=== PATIENT | female | born 1945 | race Hispanic/Latino ===

== ENCOUNTER 2016-05-01 12:29 | Outpatient (CLI) | payer MEDICARE ==
--- NOTE | 2016-05-05 08:38 | PET Report ---
PET/CT:05/01/16 12:29:00 CLINICAL: Breast cancer restaging. RADIOPHARMACEUTICAL: 15.03mCi F18-FDG. COMPARISON: 12/13/15 PET/CT TECHNIQUE- Following intravenous injection of F-18 FDG and an approximately 60 minute uptake period, CT and PET images from the mid skull to the upper thighs were acquired with the patient in the fasted state. No contrast was administered. The CT protocol used for this PET CT study is designed for attenuation correction and anatomic localization of PET abnormalities. This compliance analyst CT is not desired to produce and cannot replace, [id number] diagnostic CT scans with specific imaging protocols for different body parts and indications. Plasma glucose at the time of this test: 131g/dl. The standardized uptake values (SUV) are normalized to patient body weight and indicate the highest activity concentration (SUV max) in a given disease site. FINDINGS: Brain--Physiologic FDG uptake in the visualized regions of the brain. Neck--Physiologic FDG uptake . Chest--Physiologic FDG uptake in mediastinal blood pool and myocardium. Lungs--No abnormal uptake. No pulmonary nodule or mass. Pleura/pericardium--No abnormal uptake. Thoracic nodes--No abnormal uptake. Hepatobiliary--No abnormal uptake. Liver background SUV mean, as a reference for comparing FDG studies, is 4.56 compared to 4.0 on the last exam. No liver mass. Spleen--No abnormal uptake. Pancreas--No abnormal uptake. Adrenal Glands--No abnormal uptake. Kidneys/Ureters/Bladder--No abnormal uptake. Abdominopelvic Nodes--No abnormal uptake. Bowel/Peritoneum/Mesentery--No abnormal uptake. The previously described omental FDG uptake has resolved. Pelvic organs--No abnormal uptake. Bones/Soft Tissues--No abnormal uptake. However, stable diffuse blastic skeletal metastasis. IMPRESSION-Stable skeletal metastasis. Resolution of hepatic and omental metastases.
== END 2016-05-01 12:30 | disposition home or self-care (01) ==
LOC: PET 12:29
PROVIDERS: ATTEND Internal Medicine Hematology & Oncology
DX: C50.911 Malignant neoplasm of unspecified site of right female breast (principal)
CPT/HCPCS: 78815; 82962; A9552

== ENCOUNTER 2016-09-11 09:57 | Outpatient (CLI) | payer MEDICARE ==
--- NOTE | 2016-09-12 09:03 | PET Report ---
PET SB TO MT SUBSEQUENT: HISTORY: Restaging of breast cancer. TECHNIQUE: 15.4 millicuries F-18 FDG was administered intravenously. Noncontrast CT images and PET images were obtained from the skull base to the proximal thighs. Fused images were reviewed on a workstation. The patient's blood glucose level measured 113. COMPARISON: 05/01/16. FINDINGS: BRAIN: physiologic FDG uptake in the imaged brain. NECK: physiologic FDG uptake. MEDIASTINUM: physiologic FDG uptake. LUNGS: physiologic FDG uptake. PLEURA/PERICARDIUM: physiologic FDG uptake. THORACIC LYMPH NODES: physiologic FDG uptake. HEPATOBILIARY: physiologic FDG uptake. Mean liver SUV measures 4.1. PANCREAS: physiologic FDG uptake. SPLEEN: physiologic FDG uptake. ADRENAL GLANDS: physiologic FDG uptake. KIDNEYS/RENAL COLLECTING SYSTEMS: physiologic FDG uptake. BOWEL/MESENTERY: physiologic FDG uptake. PELVIC VISCERA: physiologic FDG uptake. ABDOMINAL/PELVIC LYMPH NODES: physiologic FDG uptake. MUSCULOSKELETAL: Diffuse sclerotic skeletal metastasis appears stable. Average SUV in the bony structures measures 2.3. No new focal areas of increased activity. No pathologic fracture. Comment: Small perihepatic, perisplenic and pelvic ascites has developed since the previous exam. No obvious peritoneal or omental lesions are detected. IMPRESSION: Essentially no change since 05/01/16. Diffuse skeletal metastasis are again identified which remain hypometabolic. No new areas of abnormal radiotracer uptake are appreciated. Small ascites has developed since the previous exam.
== END 2016-09-11 09:58 | disposition home or self-care (01) ==
LOC: PET 09:57
PROVIDERS: ATTEND Internal Medicine Hematology & Oncology
DX: C79.51 Secondary malignant neoplasm of bone (principal); C50.911 Malignant neoplasm of unspecified site of right female breast; R18.8 Other ascites
CPT/HCPCS: 78815; 82962; A9552

== ENCOUNTER 2016-10-20 13:37 | Outpatient (CLI) | payer MEDICARE ==
--- NOTE | 2016-10-21 14:42 | Magnetic Resonance Report ---
MRI ABDOMEN AND PELVIS WITHOUT AND WITH CONTRAST: 10/20/16 CLINICAL: Breast cancer with pelvic pain, bone metastases and rising tumor markers. COMPARISON :09/11/16 CT PET TECHNIQUE: Axial T1 in phase and opposed phase, coronal and axial T2 and axial T2 fat sat sequences plus postcontrast T1 fat sat abdominal sequences plus coronal and axial T1 and T2 and postcontrast T1 fat sat pelvic sequences on a 1.5 Mara magnet. 20 cc of Multihance was injected intravenously for the contrast portion of the exam and consent was obtained prior to the administration of contrast. FINDINGS: Abdomen: The liver is borderline small with the right lobe measuring 14 cm in length. However, normal liver contour and signal. No liver mass. Normal gallbladder and bile ducts. Normal stomach and duodenum, pancreas and spleen. Normal adrenal glands. The kidneys are normal except for left lower pole renal cysts measuring 1.4 and 1.3 cm. The renal collecting systems and ureters are nondilated. Normal aorta and inferior vena cava. There is a moderate volume of ascites with increased amount of ascites compared to the CT PET. The small bowel and colon are normal. No intraperitoneal mass or abnormal enhancement identified. Pelvis: Normal uterus and ovaries with a dominant 1.3 cm left ovarian follicle. Pelvic ascites. No mass. Normal rectum. Sigmoid diverticulosis but no signs of diverticulitis. There is signal is diffusely heterogeneous with abnormal enhancement particularly in the pelvic bones which is consistent with known skeletal metastases. No fractures are identified. No spinal canal involvement. IMPRESSION: 1. Moderate abdominal pelvic ascites without identified etiology. 2. Borderline small liver but no other signs to suggest liver disease. 3. No intraperitoneal or retroperitoneal metastatic disease identified. 4. Skeletal metastasis but no fracture or extension into the spinal canal. 5. Sigmoid diverticulosis but no signs of diverticulitis.
== END 2016-10-20 13:38 | disposition home or self-care (01) ==
LOC: SPVIMAG 13:37
PROVIDERS: ATTEND Internal Medicine Hematology & Oncology
DX: C79.51 Secondary malignant neoplasm of bone (principal); C50.911 Malignant neoplasm of unspecified site of right female breast; N28.1 Cyst of kidney, acquired; R18.8 Other ascites; K57.30 Diverticulosis of large intestine without perforation or abscess without bleeding; I10 Essential (primary) hypertension; F32.9 Major depressive disorder, single episode, unspecified; F41.9 Anxiety disorder, unspecified; Z87.891 Personal history of nicotine dependence
CPT/HCPCS: 72197; 74183; A9577

== ENCOUNTER 2016-11-25 12:09 | Day surgery (SDC) | payer MEDICARE ==
[2016-11-25 13:27] LABS: INR 1.24 (0.87-1.13)
[2016-11-25 13:28] LABS: Partial Thromboplastin Time 27.9 Sec. (24.2-36.6)
[2016-11-25 16:14] VITALS: BP 120/56
--- NOTE | 2016-11-25 16:35 | Short Stay Summary ---
Short Stay Documentation Date of service: 11/25/16 - History Principal diagnosis: Abd. distention - Allergies and Medications Current Medications: Allergies Sulfa (Sulfonamide Antibiotics) Adverse Reaction (Verified 12/27/15 08:25) Rash Home Medications Medication Instructions Recorded Confirmed Last Taken Type Lisinopril [Zestril TAB] 20 mg PO DAILY 12/27/15 11/25/16 11/24/16 History amLODIPine [Norvasc] 10 mg PO DAILY 12/27/15 11/25/16 11/24/16 History Venlafaxine [Effexor] 75 mg PO DAILY 11/25/16 11/25/16 11/24/16 History - Physical exam General appearance: no acute distress Gastrointestinal: distended - Brief post op/procedure progress note Date of procedure: 11/25/16 Pre-op diagnosis: Ascites Post-op diagnosis: same Anesthesia: local Surgeon: CARLOS ENRIQUE CARDONA Estimated blood loss: none Specimen disposition: to lab Condition: stable - Disposition Condition at discharge: Good Short Stay Discharge Plan Additional Instructions: Make follow up appointment with . Follow up with: LASHELL TURCIOS [facility] [employer] [facility]WER [Primary Care Provider] - 7 Days
--- NOTE | 2016-11-25 16:42 | Ultrasound Report ---
Ultrasound guided paracentesis. History: Ascites. Findings: All 4 quadrants of the abdomen were examined. The patient's skin surface overlying the left upper quadrant was prepped and draped using sterile technique. Local anesthetic was injected into the skin. Using sonographic guidance, a 5 [place] Yueh catheter was inserted into the left upper quadrant. 4.2 L of serous fluid was aspirated, and appropriate samples sent to the laboratory for studies ordered by the referring physician. The patient tolerated the procedure well clinically and was discharged in satisfactory condition.
== END 2016-11-25 15:50 ==
LOC: CATHLABREC 12:09
PROVIDERS: ATTEND Internal Medicine Hematology & Oncology
DX: R18.8 Other ascites (principal); Z88.2 Allergy status to sulfonamides
CPT/HCPCS: 36415; 49083; 85610; 85730; 88112; 88305; 88341; 88342

== ENCOUNTER 2017-02-19 10:29 | Outpatient (CLI) | payer MEDICARE ==
--- NOTE | 2017-02-23 08:41 | PET Report ---
PET/CT:02/19/17 10:29:00 CLINICAL: Breast cancer restaging. RADIOPHARMACEUTICAL: 11.87mCi F18-FDG. COMPARISON: 09/11/16 PET/CT TECHNIQUE- Following intravenous injection of F-18 FDG and an approximately 60 minute uptake period, CT and PET images from the mid skull to the upper thighs were acquired with the patient in the fasted state. No contrast was administered. The CT protocol used for this PET CT study is designed for attenuation correction and anatomic localization of PET abnormalities. This jai alai player CT is not desired to produce and cannot replace, pffhy-er-jmr-art diagnostic CT scans with specific imaging protocols for different body parts and indications. Plasma glucose at the time of this test: 144g/dl. The standardized uptake values (SUV) are normalized to patient body weight and indicate the highest activity concentration (SUV max) in a given disease site. FINDINGS: Brain--Physiologic FDG uptake in the visualized regions of the brain. Neck--Physiologic FDG uptake . Chest--Physiologic FDG uptake in mediastinal blood pool and myocardium. Lungs--No abnormal uptake. No pulmonary nodule or mass. Pleura/pericardium--A large left pleural effusion and a small right pleural effusion have developed since the prior exam. However, no abnormal uptake. Thoracic nodes--No abnormal uptake. Hepatobiliary--No abnormal uptake. Liver background SUV mean, as a reference for comparing FDG studies, is 3.0 compared to 3.8 on the last exam. No liver mass. Spleen--No abnormal uptake. Pancreas--No abnormal uptake. Adrenal Glands--No abnormal uptake. Kidneys/Ureters/Bladder--No abnormal uptake. Abdominopelvic Nodes--No abnormal uptake. Bowel/Peritoneum/Mesentery--Large volume ascites has developed and multiple FDG avid omental and mesenteric masses in the abdomen and pelvis. A left upper quadrant omental mass measures 2.4 x 1.3 cm image 118, series 2 with SUV 7.2. Right upper quadrant mesenteric FDG uptake with SUV 8.0. Pelvic organs--No abnormal uptake. Bones/Soft Tissues--Diffuse blastic skeletal metastasis with several new foci of FDG uptake including the sternum with SUV 4.7 and 4.1. Multiple new foci of FDG uptake in bilateral femur. Despite these the foci of FDG uptake, the bone lesions are radiographically stable. IMPRESSION-1. Progressive disease with interval development of large volume ascites and multifocal metastasis involving the omentum and mesentery in the abdomen and pelvis. 2. Multiple new FDG avid skeletal lesions. 3. New bilateral pleural effusions but no evidence of pulmonary metastasis. 4. No evidence of hepatic metastasis.
== END 2017-02-19 10:30 | disposition home or self-care (01) ==
LOC: PET 10:29
PROVIDERS: ATTEND Internal Medicine Hematology & Oncology
DX: C78.6 Secondary malignant neoplasm of retroperitoneum and peritoneum (principal); C79.51 Secondary malignant neoplasm of bone; C50.911 Malignant neoplasm of unspecified site of right female breast; J90 Pleural effusion, not elsewhere classified; R18.8 Other ascites; Z79.899 Other long term (current) drug therapy
CPT/HCPCS: 78815; 82962; A9552